=== PATIENT | male | born 1950 | race Caucasian/White ===

== ENCOUNTER → 2017-07-06 | Outpatient (CLI) | payer MEDICARE, BC ==
[~2017-07-06] MED LIST: CIAL20TA PO; COMB0.2S EACH EYE; MEDI220T PO; RANI150T PO
[2017-07-06 13:45] LABS: BASOPHIL % 0.9 % (0.0-2.0); EOSINOPHIL # 0.2 TH/MM3 (0-0.4); EOSINOPHIL % 4.1 % (0.0-4.0); HEMATOCRIT 49.5 % (39.0-51.0); HEMOGLOBIN 16.6 GM/DL (13.0-17.0); LYMPH % 23.8 % (9.0-44.0); LYMPHOCYTE # 1.1 TH/MM3 (1.0-4.8); MEAN CELL VOLUME 89.4 FL (80.0-100.0); MEAN CORPUSCULAR HEMOGLOBIN 29.9 PG (27.0-34.0); MEAN CORPUSCULAR HGB CONC 33.5 % (32.0-36.0); MEAN PLATELET VOLUME 8.2 FL (7.0-11.0); MONO % 10.8 % (0.0-8.0); MONOCYTE # 0.5 TH/MM3 (0-0.9); NEUT % 60.4 % (16.0-70.0); PLATELET COUNT 177 TH/MM3 (150-450); RED BLOOD COUNT 5.54 MIL/MM3 (4.50-5.90); RED CELL DISTRIBUTION WIDTH 13.8 % (11.6-17.2); WHITE BLOOD COUNT 4.8 TH/MM3 (4.0-11.0)
== END ==
LOC: PHPRE 12:55
PROVIDERS: ATTEND Pain Medicine Interventional Pain Medicine
DX: Z01.810 Encounter for preprocedural cardiovascular examination (principal); Z01.812 Encounter for preprocedural laboratory examination; M54.5 Low back pain
CPT/HCPCS: 36415; 84132; 85025

== ENCOUNTER → 2017-07-13 | Day surgery (SDC) | payer MEDICARE, BC ==
[~2017-07-13] VITALS: Ht 190.5 cm; Wt 90.0 kg
[~2017-07-13] MED LIST changes: +BUPIVACAINE/EPINEPHRINE 0.5% PF 30 ML VIAL ONE; +CHLORHEXIDINE GLUCONATE 2 % 1 PACK (2 CLOTHS) TOPICAL PRN; +LACTATED RINGER'S 1000 ML IV PRN; +METOPROLOL TARTRATE 25 MG TAB PO PRN; +POVIDONE IODINE 5% (ANTISEPSIS KIT) 4 APPLICATIONS EACH NARE PRN; +PROPOFOL 200 MG/20 ML AMP ONE; +SODIUM CHLORID 0.9% 500 ML IV PRN; +SODIUM CHLORIDE 0.9% 20 ML VIAL ONE; +ceFAZolin 1,000 MG/NS 100 ML IV SCH
--- NOTE | 2017-07-13 16:19 | MP ---
cc: Shima Grissom MD DATE OF OPERATION: 07/13/2017 PROCEDURE PERFORMED: Implantation of Medtronic spinal cord stimulating octrodes x 2. PREPROCEDURE DIAGNOSIS: Failed back syndrome with intractable pain. POSTPROCEDURE DIAGNOSIS: Failed back syndrome with intractable pain. PROCEDURE NOTE: IV was started in the holding area. The patient was given IV antibiotics. Surgical consent was signed and surgical site was marked. Sequential stockings were placed on the patient. He was taken to the operating room, placed in the prone position. Sedated and monitored by Anesthesia. Then, the skin in the low thoracic and upper lumbar area in the midline was infiltrated with 0.5% Marcaine with epinephrine. An incision was made. Medtronic modified Tuohy needles were advanced using fluoroscopic guidance and the loss of resistance technique at T12-L1 into the epidural space, 1 needles on the right, one needle was on the left. Then, Medtronic octrodes were threaded in a cephalad direction until the cephalad tip of the octrodes was at the mid T9 level, 1 on the right, 1 on the left. Then the patient was awakened. Stimulation took place using multiple electrode combinations and in all electrode combinations the patient felt stimulation in both his left and his right lower extremity as well as his low back and his buttocks. Then the patient was re-sedated. The stylets were removed from the leads. A Silastic anchoring device was placed around the lead and each lead was anchored to the underlying fascia using two 2-0 Ethibond sutures. Fluoroscopy was used to confirm the leads did not move during the anchoring process. Then, distal extension wires were connected to the stimulating leads and a tunneling device was used to tunnel the distal extension wires to exit on the patient's left flank. The redundant wire from the lead was coiled in a subcutaneous pocket in the lumbar midline. Then, the lumbar incision was irrigated with Betadine and closed with 3-0 Monocryl in a subcuticular tissue and 3-0 nylon on the skin. The incisions were covered with sterile adhesive dressings, and the patient was taken to the recovery room with stable vital signs, neurologically intact. MD ALEX Milian/ROVERTO , 03:50 PM , 04:17 PM
[2017-07-13 16:39] VITALS: BP 126/74; PULSE 60; RESP 16; TEMP 97.5; O2SAT 98
== END | disposition home or self-care (01) ==
LOC: PHSDC 10:28
PROVIDERS: ATTEND Pain Medicine Interventional Pain Medicine
DX: M96.1 Postlaminectomy syndrome, not elsewhere classified (principal); M54.5 Low back pain
CPT/HCPCS: 01936; 63650; 63685; 76000; C1778; J7120

== ENCOUNTER → 2017-07-23 | Day surgery (SDC) | payer MEDICARE, BC ==
[~2017-07-23] VITALS: Ht 190.5 cm; Wt 90.5 kg
[~2017-07-23] MED LIST changes: -BUPIVACAINE/EPINEPHRINE 0.5% PF 30 ML VIAL ONE; +MIDAZOLAM HCL 2 MG/2 ML VIAL ONE; -PROPOFOL 200 MG/20 ML AMP ONE; -SODIUM CHLORIDE 0.9% 20 ML VIAL ONE
[2017-07-23] MEDS: BUPIVACAINE/EPINEPHRINE 0.5% PF 30 ML VIAL ONE (12:11)
[2017-07-23 12:30] VITALS: TEMP 97.9
[2017-07-23 12:50] VITALS: BP 125/80; PULSE 59; RESP 16; O2SAT 98
--- NOTE | 2017-07-23 12:50 | MP ---
cc: Shima Grissom MD DATE OF OPERATION: 07/23/2017 PROCEDURE PERFORMED: Removal of spinal cord stimulating electrodes x 2. PREPROCEDURE Failed back syndrome with intractable pain. PROCEDURE NOTE: IV was started in the holding area. The patient was given IV antibiotics. Surgical consent was signed. The surgical site was marked. The patient was taken to the operating room and placed in the prone position and sedated by anesthesia. The distal extension wires in the patient's left flank were cut with a sterile scissors. His back was prepped with ChloraPrep. The lumbar incision was infiltrated with 0.5% Marcaine containing epinephrine. The incision was opened. Then, the spinal cord stimulating leads were exteriorized, then the 2-0 Ethibond suture which was holding the anchors in place was cut and the leads were removed intact. The incision was irrigated with Betadine solution and closure took place with 3-0 Monocryl in the subcuticular tissue and 3-0 nylon on the skin. The incisions were covered with a sterile adhesive dressings and the patient was taken to the recovery room with stable vital. MD ALEX Milian/DONTA , 12:39 PM , 12:48 PM
== END | disposition home or self-care (01) ==
LOC: PHSDC 10:44
PROVIDERS: ATTEND Pain Medicine Interventional Pain Medicine
DX: M96.1 Postlaminectomy syndrome, not elsewhere classified (principal)
CPT/HCPCS: 01936; 63661; J0690; J2250; J7120; J3010